=== PATIENT | female | born 1955 | race Caucasian/White ===

== ENCOUNTER 2021-08-17 10:56 | Outpatient (RCR) | payer MEDICARE | END 2021-09-16 | disposition home or self-care (01) | LOC: PT | DX: M62.81 Muscle weakness (generalized) (principal) ==

== ENCOUNTER 2021-10-17 02:05 | Emergency (ER) | payer MEDICARE ==
[~2021-10-17] VITALS: Ht 160 cm; Wt 63.4 kg
[2021-10-17] MEDS ORDERED: EZETIMIBE10 M1 PO (02:21)
[2021-10-17] MEDS ORDERED: FEROSUL325 M1 PO (02:21)
[2021-10-17] MEDS ORDERED: ROSUVASTATIN CA20 MG PO (02:21)
[2021-10-17] MEDS ORDERED: PREDNISONE10 MG PO (02:22)
[2021-10-17] MEDS ORDERED: LORAZEPAM1 M1 PO (02:22)
[2021-10-17] MEDS ORDERED: OXYCODONE HCL10 M1 PO (02:22)
[2021-10-17] MEDS ORDERED: GABAPENTIN100 MG PO (02:23)
[2021-10-17] MEDS ORDERED: LOPRESSOR 225 MG/TAB PO (02:23)
[2021-10-17] MEDS ORDERED: PRILOSEC 20MG20 MG PO (02:23)
[2021-10-17 03:20] VITALS: BP 140/78
== END 2021-10-17 03:25 | disposition home or self-care (01) ==
LOC: ED 02:05
DX: S81.802A Unspecified open wound, left lower leg, initial encounter (principal); S41.102A Unspecified open wound of left upper arm, initial encounter; J44.9 Chronic obstructive pulmonary disease, unspecified; Z99.81 Dependence on supplemental oxygen; Z87.891 Personal history of nicotine dependence; W18.30XA Fall on same level, unspecified, initial encounter; W22.8XXA Striking against or struck by other objects, initial encounter; Y92.009 Unspecified place in unspecified non-institutional (private) residence as the place of occurrence of the external cause

== ENCOUNTER → 2023-07-18 | Outpatient (CLI) | payer MEDICARE ==
[~2023-07-18] MED LIST: EZETIMIBE10 M1 PO; FEROSUL325 M1 PO; GABAPENTIN100 MG PO; LOPRESSOR 225 MG/TAB PO; LORAZEPAM1 M1 PO; OXYCODONE HCL10 M1 PO; PREDNISONE10 MG PO; PRILOSEC 20MG20 MG PO; ROSUVASTATIN CA20 MG PO
== END ==
LOC: RAD 10:46
DX: Z98.890 Other specified postprocedural states (principal); Z87.81 Personal history of (healed) traumatic fracture